=== PATIENT | female | born 2000 | race Caucasian/White ===

== ENCOUNTER 2019-02-15 18:00 | Emergency (ER) | payer BC ==
[2019-02-15 18:37] VITALS: BP 121/79
[2019-02-15 19:13] LABS: Influenza A Molecular NEGATIVE (Negative); Influenza B Molecular NEGATIVE (Negative)
--- NOTE | 2019-02-15 19:27 | ED ---
Throat Pain/Nasal Congestion - HPI Summary HPI Summary: 18 yo WF p/w throat pain associated with URI sx x 2-3 days, started Keflex for right great toe paronychia x fewdays and concerned that she may have throat swelling due to keflex, denies SOB, urticaria, rash, hives - History of Current Complaint Chief Complaint: UCGeneralIllness Time Seen by Provider: 02/15/19 18:41 Hx Obtained From: Patient Onset/Duration: Sudden Onset Severity: Moderate Associated Signs And Symptoms: Positive: Negative - Allergies/Home Medications Allergies/Adverse Reactions: Allergies Allergy/AdvReac Type Severity Reaction Status Date / Time No Known Allergies Allergy Verified 02/15/19 18:29 Home Medications: Home Medications Ibuprofen TAB* [Advil TAB*] 400 mg PO Q6H PRN 02/15/19 [History Confirmed ] Norethindrone-E.estradiol-Iron [Junel Fe 24 Tablet] 1 tab PO BEDTIME 02/15/19 [ History Confirmed 02/15/19] cephALEXin [Keflex] 500 mg PO TID 02/15/19 [History Confirmed 02/15/19] PMH/Surg Hx/FS Hx/Imm Hx Previously Healthy: Yes - Surgical History Surgery Procedure, Year, and Place: wisdom teeth extractions. Infectious Disease History: No Infectious Disease History: Denies: Traveled Outside the [place] in Last 30 Days - Social History Alcohol Use: Weekly Substance Use Type: Reports: None Smoking Status (MU): Never Smoked Tobacco Review of Systems - ROS Summary Review of Systems Summary: Constitutional: Negative Eyes: Negative ENT: throat pain/swelling, sore Cardiovascular: Negative Respiratory: Negative Gastrointestinal: Negative Genitourinary: Negative Musculoskeletal: Negative Skin: Negative Neurological: Negative Psychological: Normal All Other Systems Reviewed And Are Negative: Yes Physical Exam - Summary Physical Exam Summary: Appearance: Positive: No Pain Distress Skin: Positive: Warm Head/Face: Positive: Normal Head/Face Inspection Eyes: Positive: Normal ENT: Positive: B/L pharyngeal erythema w/o exudates with B/L cervical LN swelling, nasal congestion Neck: Positive: Supple Respiratory/Lung Sounds: Positive: Clear to Auscultation. Cardiovascular: Positive: Normal, RRR, S1, S2 Abdomen : soft, NT/ND Musculoskeletal: Positive: Normal, Strength/ROM Intact Neurological: Positive: CN Intact II-XII Vital Signs On Initial Exam: Initial Vitals Temp Pulse Resp BP Pulse Ox 37.7 C 103 16 121/79 99 02/15/19 18:33 02/15/19 18:33 02/15/19 18:33 02/15/19 18:33 02/15/19 18:33 Diagnostics - Vital Signs Vital Signs Temp Pulse Resp BP Pulse Ox 02/15/19 18:33 37.7 C 103 16 121/79 99 - Laboratory Lab Results: Lab Results 02/15/19 02/15/19 Range/Units 18:56 19:01 Influenza A (Rapid) Negative (Negative) Influenza B (Rapid) Negative (Negative) Group A Strep Rapid Negative (Negative) Lab Statement: Any lab studies that have been ordered have been reviewed, and results considered in the medical decision making process. EENT Course/Dx - Course Assessment/Plan: URI with pharyngitis- rapid strep neg, salt gargling, OTC cold meds - Diagnoses Provider Diagnoses: Pharyngitis, URI, acute Discharge - Sign-Out/Discharge Documenting (check all that apply): Patient Departure All imaging exams completed and their final reports reviewed: No Studies - Discharge Plan Condition: Stable Disposition: HOME Patient Education Materials: Pharyngitis (ED), Upper Respiratory Infection (ED) Additional Instructions: Salt gargling for viral pharyngitis, over the counter cold meds such as Dayquil and NYquil as needed - Billing Disposition and Condition Condition: STABLE Disposition: Home
== END 2019-02-15 19:29 | disposition home or self-care (01) ==
LOC: UCCORT 18:00
DX: J02.9 Acute pharyngitis, unspecified (principal)
CPT/HCPCS: 87651; 99201; G0463

== ENCOUNTER 2019-02-23 13:02 | Emergency (ER) | payer BC ==
[2019-02-23 13:29] VITALS: BP 118/73
--- NOTE | 2019-02-23 13:30 | UC ---
Skin Complaint HPI - HPI Summary HPI Summary: Patient removed an ingrown toenail on her own, was placed on abx due to infection and it improved slightly. then the infection returned, now the skin is growing over the nail and is infected again. - History of Current Complaint Time Seen by Provider: 02/23/19 13:21 Stated Complaint: RIGHT GREAT TOE COMPLAINT Hx Obtained From: Patient Hx Last Menstrual Period: beginning of January Onset/Duration: Sudden Onset Timing: Constant Onset Severity: Moderate Current Severity: Moderate Location: Discrete Character: Pruritus, Redness, Raised, Painful Aggravating Factor(s): Touch Alleviating Factor(s): Nothing Associated Signs & Symptoms: Positive: Drainage - Allergy/Home Medications Allergies/Adverse Reactions: Allergies Allergy/AdvReac Type Severity Reaction Status Date / Time No Known Allergies Allergy Verified 02/23/19 13:25 PMH/Surg Hx/FS Hx/Imm Hx Previously Healthy: Yes - Surgical History Surgical History: Yes Surgery Procedure, Year, and Place: wisdom teeth extractions. - Family History Known Family History: Positive: Hypertension - Social History Alcohol Use: Weekly Substance Use Type: None Smoking Status (MU): Never Smoked Tobacco Review of Systems All Other Systems Reviewed And Are Negative: Yes Skin: Positive: Other - infected great toe cuticle, ingrown nail Is Patient Immunocompromised?: No Physical Exam Triage Information Reviewed: Yes Appearance: Well-Appearing, Well-Nourished, Pain Distress Vital Signs Reviewed: Yes Eye Exam: Normal ENT Exam: Normal Dental Exam: Normal Neck exam: Normal Respiratory Exam: Normal Cardiovascular Exam: Normal Abdominal Exam: Normal Bowel Sounds: Positive: Present Musculoskeletal Exam: Normal Neurological Exam: Normal Psychological Exam: Normal Skin: Positive: Other - infected cuticle of the right great toe, overgrowth of skin Course/Dx - Course Course Of Treatment: hx obtained, exam performed ,meds reviewed, treated for infection and referred to podiatry - Differential Diagnoses - Skin Complaint Differential Diagnoses: Abscess, Cellulitis - Diagnoses Provider Diagnosis: Paronychia, Ingrown toenail of right foot Discharge - Sign-Out/Discharge Documenting (check all that apply): Patient Departure All imaging exams completed and their final reports reviewed: No Studies - Discharge Plan Condition: Stable Disposition: HOME Patient Education Materials: Paronychia (ED) Referrals: No Primary Care Phys,NOPCP [Primary Care Provider] - Tay Tarango DPM [Doctor of Podiatric Medicine] - Eben Reyes DPM [Doctor of Podiatric Medicine] - Additional Instructions: 1. take the medication as prescribed. 2. Follow up with podiatry 3. Soak in epsom salt water - Billing Disposition and Condition Condition: STABLE Disposition: Home
== END 2019-02-23 13:52 | disposition home or self-care (01) ==
LOC: UCCORT 13:02
DX: L03.031 Cellulitis of right toe (principal); L60.0 Ingrowing nail
CPT/HCPCS: 99212; G0463